=== PATIENT | male | born 1990 | race Caucasian/White ===

== ENCOUNTER 2018-07-25 02:31 | Observation (INO) | payer OTHER ==
[2018-07-25] MEDS ORDERED: HYDROmorphone 1 MG/ML 1 ML SYRINGE IVP STA ×2 (02:50→04:52)
[2018-07-25] MEDS ORDERED: ONDANSETRON 4 MG/2 ML VIAL IVP STA (02:50)
[2018-07-25] MEDS ORDERED: SODIUM CHLORIDE 0.9% 1,000 ML IV STA (02:50)
[2018-07-25 03:23] LABS: Basophils % (A) 0 %; Eosinophils # (A) 0.4 k/uL (0-0.7); Eosinophils % (A) 3 %; HGB 14.5 gm/dL (13.0-17.5); Lymphocytes # (A) 2.4 k/uL (1.0-4.8); Lymphocytes % (A) 20 %; MCH 28.5 pg (25.0-35.0); MCHC 33.8 g/dL (31.0-37.0); MCV 84.6 fL (80.0-100.0); Mean Platelet Volume 5.9; Monocytes # (A) 0.6 k/uL (0-1.0); Monocytes % (A) 5 %; Neutrophils # (A) 8.4 k/uL (1.3-7.7); Neutrophils % (A) 71 %; Platelet Count 273 k/uL (150-450); RBC 5.09 m/uL (4.30-5.90); WBC 11.9 k/uL (3.8-10.6)
--- NOTE | 2018-07-25 03:26 | ED ---
Abdominal Pain HPI - General Source: patient Mode of arrival: ambulatory Limitations: no limitations <Brittny Varner - Last Filed: 07/25/18 03:52> <Trupti Kay - Last Filed: 07/25/18 07:57> - General Chief Complaint: Abdominal Pain Stated Complaint: Abdominal Pain Time Seen by Provider: 07/25/18 02:41 - History of Present Illness Initial Comments: 28-year-old male patient presents to the emergency department for evaluation of lower abdominal pain. Patient states this started a few hours ago but has been steadily worsening. Patient states it did wake him from sleep. Patient states his been nauseated with this but has not vomited. Denies any fevers or chills. Denies any constipation or diarrhea. Denies any hematuria, dysuria, urinary frequency, urinary urgency. He denies any radiation of the pain to his back. Denies any history of similar symptoms. Reports a benign medical history. Pat ient denies any recent rash, shortness breath, chest pain, numbness, tingling, dizziness, weakness, headache, visual changes, or any other complaints. (Brittny Varner) - Related Data Allergies Allergy/AdvReac Type Severity Reaction Status Date / Time No Known Allergies Allergy Verified 07/25/18 02:41 Review of Systems ROS Other: All systems not noted in ROS Statement are negative. <Brittny Varner - Last Filed: 07/25/18 03:52> ROS Other: All systems not noted in ROS Statement are negative. <Trupti Kay - Last Filed: 07/25/18 07:57> ROS Statement: Those systems with pertinent positive or pertinent negative responses have been documented in the HPI. Past Medical History Past Medical History: Hyperlipidemia History of Any Multi-Drug Resistant Organisms: None Reported Past Surgical History: No Surgical Hx Reported Past Psychological History: No Psychological Hx Reported Smoking Status: Never smoker Past Alcohol Use History: Occasional Past Drug Use History: None Reported <Brittny Varner - Last Filed: 07/25/18 03:52> General Exam Limitations: no limitations General appearance: alert, in no apparent distress, other (Physical well- developed, well-nourished adult male patient in mild distress related to pain. Vital signs upon presentation are temperature 97.7F, pulse 92, respirations 18, blood pressure 149/93, pulse ox 100% on room air.) Eye exam: Present: normal appearance, PERRL, EOMI. Absent: scleral icterus, conjunctival injection, periorbital swelling ENT exam: Present: normal exam, normal oropharynx, mucous membranes moist Respiratory exam: Present: normal lung sounds bilaterally. Absent: respiratory distress, wheezes, rales, rhonchi, stridor Cardiovascular Exam: Present: regular rate, normal rhythm, normal heart sounds. Absent: systolic murmur, diastolic murmur, rubs, gallop, clicks GI/Abdominal exam: Present: soft, tenderness (Right mid abdomen tenderness), normal bowel sounds. Absent: distended, guarding, rebound, rigid Back exam: Present: normal inspection. Absent: CVA tenderness (R), CVA tenderness (L) Neurological exam: Present: alert, oriented X3, CN II-XII intact Psychiatric exam: Present: normal affect, normal mood Skin exam: Present: warm, dry, intact, normal color. Absent: rash <Brittny Varner - Last Filed: 07/25/18 03:52> Course Vital Signs 07/25/18 07/25/18 07/25/18 02:37 04:05 05:24 Temperature 97.7 F 98.2 F Pulse Rate 92 78 84 Respiratory 18 16 12 Rate Blood Pressure 149/93 140/88 147/88 O2 Sat by Pulse 100 98 97 Oximetry Medical Decision Making - Lab Data Result diagrams: 07/25/18 03:05 07/25/18 03:05 - Radiology Data Radiology results: report reviewed, image reviewed <Brittny Varner - Last Filed: 07/25/18 03:52> - Lab Data Result diagrams: 07/25/18 03:05 07/25/18 03:05 <Trupti Kay - Last Filed: 07/25/18 07:57> - Medical Decision Making 28-year-old male patient presents to the emergency department today for evaluation of lower abdominal pain. Physical examination did reveal tenderness to the right mid abdomen. Patient did have leukocytosis with a white blood cell count 11.8. CT abdomen and pelvis was obtained and did show evidence for acute appendicitis. No Acute process is seen at this time. Patient started on Zosyn. Be admitted to Dr. Bryant. (Brittny Varner) I was available for consultation in the emergency department. The history and physical exam were done by the midlevel provider. I was consulted for this patient's care. I reviewed the case with the midlevel provider and based on their presentation of the patient, I agree with the assessment, medical decision making and plan of care as documented. Chart was dictated using [employer] dictation software. Attempts were made to correct any dictation errors however some typographical errors may persist. (Trupti Kay) - Lab Data Lab Results 07/25/18 07/25/18 07/25/18 Range/Units 03:05 03:05 03:05 WBC 11.9 H (3.8-10.6) k/uL RBC 5.09 (4.30-5.90) m/uL Hgb 14.5 (13.0-17.5) gm/dL Hct 43.0 (39.0-53.0) % MCV 84.6 (80.0-100.0) fL MCH 28.5 (25.0-35.0) pg MCHC 33.8 (31.0-37.0) g/dL RDW 13.0 (11.5-15.5) % Plt Count 273 (150-450) k/uL Neutrophils % 71 % Lymphocytes % 20 % Monocytes % 5 % Eosinophils % 3 % Basophils % 0 % Neutrophils # 8.4 H (1.3-7.7) k/uL Lymphocytes # 2.4 (1.0-4.8) k/uL Monocytes # 0.6 (0-1.0) k/uL Eosinophils # 0.4 (0-0.7) k/uL Basophils # 0.0 (0-0.2) k/uL Sodium 139 (137-145) mmol/L Potassium 3.7 (3.5-5.1) mmol/L Chloride 105 (98-107) mmol/L Carbon Dioxide 21 L (22-30) mmol/L Anion Gap 13 mmol/L BUN 20 (9-20) mg/dL Creatinine 0.90 (0.66-1.25) mg/dL Est GFR (CKD-EPI)AfAm >90 (>60 ml/min/1.73 sqM) Est GFR (CKD-EPI)NonAf >90 (>60 ml/min/1.73 sqM) Glucose 94 (74-99) mg/dL Calcium 10.3 H (8.4-10.2) mg/dL Total Bilirubin 0.8 (0.2-1.3) mg/dL AST 24 (17-59) U/L ALT 36 (21-72) U/L Alkaline Phosphatase 70 (38-126) U/L Total Protein 7.7 (6.3-8.2) g/dL Albumin 5.0 (3.5-5.0) g/dL Amylase 67 (30-110) U/L Lipase 76 (23-300) U/L Urine Color Yellow Urine Appearance Clear (Clear) Urine pH 6.0 (5.0-8.0) Ur Specific [place] 1.024 (1.001-1.035) Urine Protein Negative (Negative) Urine Glucose (UA) Negative (Negative) Urine Ketones Negative (Negative) Urine Blood Small H (Negative) Urine Nitrite Negative (Negative) Urine Bilirubin Negative (Negative) Urine Urobilinogen <2.0 (<2.0) mg/dL Ur Leukocyte Esterase Negative (Negative) Urine RBC 5 (0-5) /hpf Urine WBC <1 (0-5) /hpf Urine Mucus Rare H (None) /hpf - Radiology Data CT abdomen and pelvis with contrast was obtained. Report was reviewed in its entirety. Impression by Dr. Santana shows acute uncomplicated appendicitis. (Brittny Varner) Disposition Decision to Admit Reason: Admit from EC Decision Date: 07/25/18 Decision Time: 03:53 <Brittny Varner - Last Filed: 07/25/18 03:52> <Trupti Kay - Last Filed: 07/25/18 07:57> Clinical Impression: Acute appendicitis Disposition: ADMITTED IP TO THIS [facility] Condition: Serious
[2018-07-25 03:32] LABS: ALT 36 U/L (21-72); AST 24 U/L (17-59); Alkaline Phosphatase 70 U/L (38-126); Amylase 67 U/L (30-110); Anion Gap 13 mmol/L; Appearance,Urine Clear (Clear); Bilirubin,Urine Negative (Negative); Blood Urea Nitrogen 20 mg/dL (9-20); Blood,Urine Small (Negative); Calcium 10.3 mg/dL (8.4-10.2); Carbon Dioxide 21 mmol/L (22-30); Chloride 105 mmol/L (98-107); Color,Urine Yellow; Glucose 94 mg/dL (74-99); Glucose,Urine (UA) Negative (Negative); Ketones,Urine Negative (Negative); Leukocyte Esterase,Urine Negative (Negative); Lipase 76 U/L (23-300); Mucus,Urine Rare /hpf; Nitrite,Urine Negative (Negative); Potassium 3.7 mmol/L (3.5-5.1); Protein,Urine Negative (Negative); RBC,Urine 5 /hpf (0-5); Sodium 139 mmol/L (137-145); Specific Gravity,Urine 1.024 (1.001-1.035); Total Bilirubin 0.8 mg/dL (0.2-1.3); Total Protein 7.7 g/dL (6.3-8.2); Urobilinogen,Urine <2.0 mg/dL (<2.0); WBC,Urine <1 /hpf (0-5)
--- NOTE | 2018-07-25 03:44 | CT ---
INDICATION: Abdominal pain TECHNIQUE: CT acquisition is performed through the abdomen and pelvis on the administration of IV contrast. Coronal and sagittal reformatted images are provided. DOSE INFORMATION: CTDIvol 9.2 mGy; DLP 844.2 mGy-cm. One or more of the following dose reduction techniques were used: automated exposure control, adjustment of the mA and/or kV according to patient size, use of iterative reconstruction technique. COMPARISON: None. FINDINGS: The lung bases are clear. The liver, gallbladder, spleen, pancreas, and adrenal glands are unremarkable. The kidneys enhance symmetrically. There is no hydronephrosis or perinephric stranding. Aorta and IVC are normal. There is no adenopathy. The retrocecal appendix is mildly dilated measuring 7 mm. The appendix is fluid filled, and there is appendiceal wall thickening and periappendiceal fat stranding. There is no evidence of free air or abscess. There is no small or large bowel obstruction. Urinary bladder and prostate are unremarkable. There are no acute osseous findings. IMPRESSION: 1. Uncomplicated acute appendicitis. <MYCVCSECTION> [employer] 07/25/18 03:45 Call Doctor Regarding Appendicitis, called [facility] for Dr. Stearns on 07/25 03:45 (-04:00)
[2018-07-25] MEDS ORDERED: PIPERACILLIN-TAZOBACTAM 3.375 GM in SODIUM CHLORIDE 0.9% 100 ML IVPB STA (03:46)
[2018-07-25] MEDS ORDERED: NALOXONE 0.4 MG/ML 1 ML VIAL IV PRN (03:58)
[2018-07-25] MEDS: SODIUM CHLORIDE 0.9% 1,000 ML IV SCH (05:28)
[2018-07-25] MEDS: HYDROmorphone 1 MG/ML 1 ML SYRINGE IVP PRN ×2 (07:13→11:56)
--- NOTE | 2018-07-25 09:27 | P.GSHP ---
History of Present Illness H&P Date: 07/25/18 Chief Complaint: abdominal pain CHIEF COMPLAINT: Abdominal pain HISTORY OF PRESENT ILLNESS: 28 year old male who presented to the ER with a chief complaint of abdominal pain. Patient states he was feeling fine yesterday and was outside cleaning out his garage and working in the yard. Around dinner time, he began having right lower quadrant pain. He thought it was gas pain initially. He went to bed around 2300. Woke up at 0100. Pain became more severe so he came to the ER. Denies fever or chills. Denies nausea or vomiting. Denies constipation or diarrhea. Patient continues to report right lower quadrant tenderness, but tolerable. PAST MEDICAL HISTORY: See list. PAST SURGICAL HISTORY: See list. SOCIAL HISTORY: No illicit drug use. REVIEW OF SYSTEMS: CONSTITUTIONAL: Denies fever or chills. HEENT: Denies blurred vision, vision changes, or eye pain. Denies hemoptysis CARDIOVASCULAR: Denies chest pain or pressure. RESPIRATORY: No shortness of breath. GASTROINTESTINAL: Refer to [facility] for pertinent findings HEMATOLOGIC: Denies bleeding disorders. GENITOURINARY: Denies any blood in urine. SKIN: Denies pruitis. Denies rash. PHYSICAL EXAM: VITAL SIGNS: Reviewed. GENERAL: Well-developed in no acute distress. HEENT: No sclera icterus. Extraocular movements grossly intact. Moist buccal mucosa. Head is atraumatic, normocephalic. ABDOMEN: Soft. Nondistended. Tenderness to right lower quadrant. NEUROLOGIC: Alert and oriented. Cranial nerves II through XII grossly intact. LABORATORY DATA: WBC 11.9 on admission IMAGING: CT Abdomen and pelvis: Retrocecal appendix. Mildly dilated measuring 7mm. Appendix is fluid filled. Appendiceal wall thickening and periappendiceal fat stranding. No evidence of free air or abscess. Uncomplicated acute appendicits. ASSESSMENT: 1. Abdominal pain 2. Acute appendicitis 3. Leukocytosis PLAN: 1. NPO 2. Patient scheduled for appendectomy today with Dr. Bryant Nurse practitioner note has been reviewed by physician. Signing provider agrees with the documented findings, assessment, and plan of care. Past Medical History Past Medical History: Hyperlipidemia History of Any Multi-Drug Resistant Organisms: None Reported Past Surgical History: No Surgical Hx Reported Additional Past Surgical History / Comment(s): [place] teeth removed Past Psychological History: No Psychological Hx Reported Smoking Status: Never smoker Past Alcohol Use History: Occasional Past Drug Use History: None Reported Medications and Allergies Home Medications Medication Instructions Recorded Confirmed Type No Known Home Medications 07/25/18 07/25/18 History Allergies Allergy/AdvReac Type Severity Reaction Status Date / Time No Known Allergies Allergy Verified 07/25/18 08:38 Surgical - Exam Vital Signs Temp Pulse Resp BP Pulse Ox 97.7 F 92 18 149/93 100 07/25/18 02:37 07/25/18 02:37 07/25/18 02:37 07/25/18 02:37 07/25/18 02:37 Results - Labs 07/25/18 03:05 07/25/18 03:05 Abnormal Lab Results - Last 24 Hours (Table) 07/25/18 07/25/18 07/25/18 Range/Units 03:05 03:05 03:05 WBC 11.9 H (3.8-10.6) k/uL Neutrophils # 8.4 H (1.3-7.7) k/uL Carbon Dioxide 21 L (22-30) mmol/L Calcium 10.3 H (8.4-10.2) mg/dL Urine Blood Small H (Negative) Urine Mucus Rare H (None) /hpf Diabetes panel 07/25/18 Range/Units 03:05 Sodium 139 (137-145) mmol/L Potassium 3.7 (3.5-5.1) mmol/L Chloride 105 (98-107) mmol/L Carbon Dioxide 21 L (22-30) mmol/L BUN 20 (9-20) mg/dL Creatinine 0.90 (0.66-1.25) mg/dL Glucose 94 (74-99) mg/dL Calcium 10.3 H (8.4-10.2) mg/dL AST 24 (17-59) U/L ALT 36 (21-72) U/L Alkaline Phosphatase 70 (38-126) U/L Total Protein 7.7 (6.3-8.2) g/dL Albumin 5.0 (3.5-5.0) g/dL Calcium panel 07/25/18 Range/Units 03:05 Calcium 10.3 H (8.4-10.2) mg/dL Albumin 5.0 (3.5-5.0) g/dL Pituitary panel 07/25/18 Range/Units 03:05 Sodium 139 (137-145) mmol/L Potassium 3.7 (3.5-5.1) mmol/L Chloride 105 (98-107) mmol/L Carbon Dioxide 21 L (22-30) mmol/L BUN 20 (9-20) mg/dL Creatinine 0.90 (0.66-1.25) mg/dL Glucose 94 (74-99) mg/dL Calcium 10.3 H (8.4-10.2) mg/dL Adrenal panel 07/25/18 Range/Units 03:05 Sodium 139 (137-145) mmol/L Potassium 3.7 (3.5-5.1) mmol/L Chloride 105 (98-107) mmol/L Carbon Dioxide 21 L (22-30) mmol/L BUN 20 (9-20) mg/dL Creatinine 0.90 (0.66-1.25) mg/dL Glucose 94 (74-99) mg/dL Calcium 10.3 H (8.4-10.2) mg/dL Total Bilirubin 0.8 (0.2-1.3) mg/dL AST 24 (17-59) U/L ALT 36 (21-72) U/L Alkaline Phosphatase 70 (38-126) U/L Total Protein 7.7 (6.3-8.2) g/dL Albumin 5.0 (3.5-5.0) g/dL
[2018-07-25] MEDS: ONDANSETRON 4 MG/2 ML VIAL IVP PRN ×2 (10:00→21:12)
[2018-07-25 10:04] LABS: Glucose,Whole Blood 97 mg/dL (75-99)
[2018-07-25] MEDS: PIPERACILLIN-TAZOBACTAM 3.375 GM in SODIUM CHLORIDE 0.9% 100 ML IVPB SCH ×2 (11:42→20:52)
[2018-07-25] MEDS ORDERED: SODIUM CHLORIDE 0.9% 1,000 ML IV ONE (14:57)
[2018-07-25] MEDS ORDERED: ONDANSETRON 4 MG/2 ML VIAL IVP ONE (15:15)
[2018-07-25] MEDS ORDERED: DEXAMETHASONE SOD PHOS (MDV) 100 MG/10 ML VIAL IVP ONE (15:15)
[2018-07-25] MEDS ORDERED: HEPARIN SODIUM,PORCINE 5,000 UNIT/ML 1 ML VIAL SQ ONE (15:57)
[2018-07-25] MEDS ORDERED: ceFAZolin IN SWFI 2 GM/20 ML SYRINGE IVP ONE (15:59)
--- NOTE | 2018-07-25 16:00 | P.HPADDEND ---
H&P Addendum H&P Addendum Date: 07/25/18 Patient seen and evaluated. History of acute appendicitis. Will proceed with robotic appendectomy. Benefits and risks procedure described. 3 weeks of recovery reviewed due to occupation
[2018-07-25] MEDS ORDERED: SUCCINYLCHOLINE CHLORIDE 100 MG/5 ML SYR IV ONE (16:29)
[2018-07-25] MEDS ORDERED: PROPOFOL 10 MG/ML 20 ML VIAL IV ONE (16:29)
[2018-07-25] MEDS ORDERED: NEOSTIGMINE 1 MG/ML 10 ML VIAL ONE (16:29)
[2018-07-25] MEDS ORDERED: fentaNYL (PF) 50 MCG/ML 2 ML AMP ONE (16:29)
[2018-07-25] MEDS ORDERED: GLYCOPYRROLATE 0.2 MG/ML 2 ML VIAL ONE (16:29)
[2018-07-25] MEDS ORDERED: LIDOCAINE 1% INJ 10MG/ML (20 ML MDV) ONE (16:29)
[2018-07-25] MEDS ORDERED: ROCURONIUM BROMIDE 10 MG/ML 10 ML VIAL IV ONE (16:29)
[2018-07-25] MEDS ORDERED: MIDAZOLAM 2 MG/2 ML VIAL ONE (16:29)
[2018-07-25] MEDS ORDERED: BUPIVACAINE-EPI 0.5%-1:200,000 10 ML VIAL SQ ONE (16:57)
[2018-07-25] MEDS ORDERED: LACTATED RINGERS 1,000 ML IV ONE (17:03)
[2018-07-25] MEDS ORDERED: HYDROcodone/APAP 5-325MG 1 EACH TAB PO PRN (17:36)
--- NOTE | 2018-07-25 17:36 | P.OP ---
Date of Procedure: 07/25/18 Description of Procedure: Date of Procedure: 07/25/18 SURGEON: ASTRID BRYANT MD Preoperative Diagnosis: 1. Right lower quadrant abdominal pain 2. Acute appendicitis. 3. Leukocytosis Postoperative Diagnosis: 1. Right lower quadrant abdominal pain 2. Acute appendicitis without rupture 3. Leukocytosis Procedure(s) Performed: 1. Robotic-assisted daVinci Xi laparoscopic appendectomy Anesthesia: GETA, local Surgeon: Astrid Bryant Estimated Blood Loss (ml): 2 Pathology: other (appendix) Condition: stable Disposition: floor Operative Findings: 1. Small indirect right inguinal hernia less than 1.5 cm. 2. Dilated tip of appendix without perforation 3. Staple line completely hemostatic 4. Terminal ileum unremarkable 5. Cecum unremarkable INDICATIONS: The patient is a 28-year-old male who presents with new right lower quadrant abdominal pain. Additional diagnostic studies confirmed appendicitis. Surgical intervention was described in detail including robotic assisted technique. Benefits and risks, including infection, open surgery, and possibility for additional surgery was discussed at length. Informed consent was obtained. All questions of the patient and family were answered. DESCRIPTION: The patient was transferred to the operating room and placed in supine position. The patient had previously voided. The abdomen was then prepped and draped in standard sterile fashion as Ioban was placed along the ab domen to minimize any contamination of skin madelyn. After a timeout protocol was performed, attention was then brought to the left upper quadrant whereby a 0 degree 5 mm laparoscopic trocar entry was performed. The abdominal cavity was entered and insufflated to 15 mmHg pressure, which was tolerated well. Diagnostic laparoscopy demonstrated no injury to bowel, viscera or mesentery. The appendix and mesoappendix were inflammed with dilation of the tip of the appendix without rupture. No evidence of perforation or free fluid was identified. Small indirect right inguinal hernia less than 1.5 cm was found. Terminal ileum was unremarkable. Cecum was unremarkable Next a robotic 12-mm trocar was placed along the left lower quadrant, 15-cm lateral to the midline. A 8 mm port was placed along the right upper quadrant and another 8-mm port along the epigastrium. Ports were placed 10 cm apart from each other including 15-20 cm away from the target anatomy of the right pelvis. The patient was then placed in Trendelenburg position, at least 10 down and right side up at least 6. The robotic da Irasema XI system was primed and docked from the left side of the patient. Using atraumatic graspers and vessel sealer, the robotic system was docked and primed as described. Instruments were interchanged by the psychiatric nursing assistant including graspers, robotic stapler and vessel sealer. Next, attention was brought to identify the cecum. A systematic view within the abdominal cavity was started with the small bowel which was unremarkable. The base of the cecum was unremarkable. No inguinal hernias were identified. The body to tip of the appendix was moderately dilated. No perforation was identified. A 45 mm white robotic staple loads were fired along the base of the appendix. The staple line was hemostatic. Hemostasis was checked prior to undocking the robot. The robot was undocked. I re-scrubbed into the case. The specimen was removed from the abdominal cavity with an Endo Catch bag through the 12 mm trocar at the left lower quadrant. All instruments and pneumoperitoneum were evacuated from the abdominal cavity. Local anesthetic was infiltrated to all wounds for postop analgesia. All incisions were also cleansed with diluted hydrogen peroxide. Exofin glue was applied to the rest of the skin incisions. The patient had tolerated the procedure well. The patient was extubated successfully. The patient was transferred to the postanesthesia care unit in stable condition.
[2018-07-25] MEDS ORDERED: HYDROmorphone 1 MG/ML 1 ML SYRINGE IVP ONE (18:18)
[2018-07-25] MEDS: KETOROLAC 30 MG/ML 1 ML VIAL IVP SCH (20:31)
[2018-07-25 21:25] LABS: Glucose,Whole Blood 142 mg/dL (75-99)
[2018-07-25] MEDS: HEPARIN SODIUM,PORCINE 5,000 UNIT/ML 1 ML VIAL SQ SCH (21:34)
[2018-07-25] MEDS ORDERED: Acetaminophen-Codeine 300-30mg TAB PO PRN (21:52)
[2018-07-26] MEDS: SODIUM CHLORIDE 0.9% 1,000 ML IV SCH ×3 (00:55→20:46)
[2018-07-26] MEDS: KETOROLAC 30 MG/ML 1 ML VIAL IVP SCH ×4 (01:02→17:17)
[2018-07-26] MEDS: HEPARIN SODIUM,PORCINE 5,000 UNIT/ML 1 ML VIAL SQ SCH ×3 (01:02→16:35)
[2018-07-26] MEDS: PIPERACILLIN-TAZOBACTAM 3.375 GM in SODIUM CHLORIDE 0.9% 100 ML IVPB SCH ×3 (05:09→20:40)
[2018-07-26 08:01] LABS: Basophils % (A) 0 %; Eosinophils # (A) 0.1 k/uL (0-0.7); Eosinophils % (A) 1 %; HCT 41.3 % (39.0-53.0); HGB 13.5 gm/dL (13.0-17.5); Lymphocytes # (A) 1.5 k/uL (1.0-4.8); Lymphocytes % (A) 17 %; MCH 28.3 pg (25.0-35.0); MCHC 32.6 g/dL (31.0-37.0); MCV 86.8 fL (80.0-100.0); Monocytes # (A) 0.6 k/uL (0-1.0); Monocytes % (A) 7 %; Neutrophils # (A) 6.1 k/uL (1.3-7.7); Neutrophils % (A) 73 %; Platelet Count 258 k/uL (150-450); RBC 4.76 m/uL (4.30-5.90); RDW 13.2 % (11.5-15.5); WBC 8.4 k/uL (3.8-10.6)
[2018-07-26] MEDS ORDERED: PANTOPRAZOLE 40 MG/10 ML VIAL IVP SCH (09:00)
--- NOTE | 2018-07-26 12:56 | P.PN ---
Subjective Progress Note Date: 07/26/18 CHIEF COMPLAINT: Abdominal pain HISTORY OF PRESENT ILLNESS: Patient seen at the bedside. Patient is status post appendectomy. POD #1. Patient reports his pain is tolerable. Tolerating diet. Denies nausea or vomiting. Passing flatus. Denies BM. WBC 8.4. PHYSICAL EXAM: VITAL SIGNS: Reviewed. GENERAL: Well-developed in no acute distress. HEENT: No sclera icterus. Extraocular movements grossly intact. Moist buccal mucosa. Head is atraumatic, normocephalic. ABDOMEN: Soft. Nondistended. Surgical incision sites clean dry and intact. NEUROLOGIC: Alert and oriented. Cranial nerves II through XII grossly intact. ASSESSMENT: 1. Abdominal pain 2. Acute appendicitis 3. Leukocytosis, resolved PLAN: 1. Activity as tolerated 2. Incentive spirometry 3. Pain control 4. Anticipate discharge home this evening after patient is evaluated by Dr. Bryant Nurse practitioner note has been reviewed by physician. Signing provider agrees with the documented findings, assessment, and plan of care. Objective - Vital Signs Vital signs: Vital Signs Temp 98.3 F 07/26/18 07:59 Pulse 57 L 07/26/18 07:59 Resp 16 07/26/18 07:59 BP 113/61 07/26/18 07:59 Pulse Ox 97 07/26/18 07:59 Intake & Output 07/25/18 07/26/18 07/26/18 18:59 06:59 18:59 Intake Total 800 Output Total 2 Balance 798 Intake: IV 800 Output: Estimated Blood Loss 2 Other: Voiding Method Toilet # Voids 2 1 - Labs CBC & Chem 7: 07/26/18 07:45 07/25/18 03:05 Labs: Abnormal Lab Results - Last 24 Hours (Table) 07/25/18 Range/Units 21:13 POC Glucose (mg/dL) 142 H (75-99) mg/dL Assessment and Plan (1) Acute appendicitis Current Visit: Yes Status: Acute Code(s): K35.80 - UNSPECIFIED ACUTE APPENDICITIS SNOMED Code(s): 10526308
[2018-07-26 19:51] VITALS: BP 138/81; PULSE 52; TEMP 98.2
--- NOTE | 2018-07-26 21:31 | P.PN ---
Progress Note - Text Progress Note Date: 07/26/18 Patient report doing well. May discharge home. Follow up in the office in 2 weeks.
[2018-07-26 22:15] VITALS: RESP 18
--- NOTE | 2018-07-28 20:42 | P.DS ---
Providers Date of admission: 07/25/18 04:03 Expected date of discharge: 07/26/18 Attending physician: Astrid Bryant Primary care physician: Stated None Patient Condition at Discharge: Serious Plan - Discharge Summary Discharge Rx Participant: Yes New Discharge Prescriptions: New Docusate [Colace] 100 mg PO BID #30 capsule Hydrocodone/Acetaminophen [[place] 5-325] 1 tab PO Q4HR PRN 3 Days #18 tab PRN Reason: Pain Ibuprofen [Motrin] 600 mg PO Q8HR PRN #30 tab PRN Reason: Pain Discharge Medication List Docusate [Colace] 100 mg PO BID #30 capsule 07/26/18 [Rx] Hydrocodone/Acetaminophen [[place] 5-325] 1 tab PO Q4HR PRN 3 Days #18 tab 07/26/18 [Rx] Ibuprofen [Motrin] 600 mg PO Q8HR PRN #30 tab 07/26/18 [Rx] Follow up Appointment(s)/Referral(s): Astrid Bryant MD [STAFF PHYSICIAN] - 08/17/18 1:45 pm None,Stated [Primary Care Provider] - 1-2 days Patient Instructions/Handouts: Laparoscopic Appendectomy (DC) Activity/Diet/Wound Care/Special Instructions: No driving while taking [place] No lifting over 10 pounds You may shower. No soaking or tub baths Very light activity until you are reevaluated at your follow up appointment with your surgeon Discharge Disposition: HOME SELF-CARE
== END 2018-07-26 10:10 | disposition home or self-care (01) ==
LOC: EC 02:31 → 4SSUR 04:03
PROVIDERS: ADMIT Surgery Plastic and Reconstructive Surgery; ATTEND Surgery Plastic and Reconstructive Surgery
DX: K35.80 Unspecified acute appendicitis (principal); K40.90 Unilateral inguinal hernia, without obstruction or gangrene, not specified as recurrent; E78.5 Hyperlipidemia, unspecified
CPT/HCPCS: 44970; S2900; 36415; 74177; 80053; 81001; 82150; 83690; 85025; 88304; 96361; 96365; 96366; 96372; 96375; 96376; 99285

== ENCOUNTER 2020-07-15 20:32 | Emergency (ER) | payer OTHER ==
[2020-07-15 20:38] VITALS: BP 156/79; TEMP 98.1
--- NOTE | 2020-07-15 21:01 | XR ---
EXAMINATION TYPE: XR chest 2V DATE OF EXAM: 07/15/2020 COMPARISON: NONE HISTORY: Short of breath TECHNIQUE: FINDINGS: Heart and mediastinum are normal. Lungs are clear. Diaphragm is normal. Bony thorax appears normal. IMPRESSION: Normal chest.
[2020-07-15] MEDS ORDERED: SODIUM CHLORIDE 0.9% 1,000 ML IV STA (22:26)
--- NOTE | 2020-07-15 22:27 | ED ---
Chest Pain HPI - General Chief Complaint: Chest Pain Stated Complaint: Poss blood clot in lungs Source: patient, RN notes reviewed, old records reviewed Mode of arrival: ambulatory Limitations: no limitations - History of Present Illness Initial Comments: This is a 30-year-old male presents today for evaluation patient patient comes in for evaluation of shortness of breath and chest pain not feeling well. Patient has shortness of breath with chest pain. Patient otherwise no significant complaints. Patient did again have coronavirus which she believes is over as his been greater than 2 weeks. MD Complaint: chest pain -: days(s) Onset: during rest, during exertion Pain Location: substernal, left chest Pain Radiation: none Severity: moderate Quality: tightness Improves With: nothing Worsens With: exertion, inspiration Context: recent illness (Coronavirus) Anginal Symptoms: dyspnea Other Symptoms: cough, palpitations Treatments Prior to Arrival: none - Related Data Previous Rx's Medication Instructions Recorded Azithromycin [Zithromax Z-pack (6 0 mg PO DIRECTED #1 pack 07/16/20 tabs)] Cephalexin [Keflex] 500 mg PO Q8HR #21 cap 07/16/20 Allergies Allergy/AdvReac Type Severity Reaction Status Date / Time No Known Allergies Allergy Verified 07/15/20 23:07 Review of Systems ROS Statement: Those systems with pertinent positive or pertinent negative responses have been documented in the HPI. ROS Other: All systems not noted in ROS Statement are negative. Past Medical History Past Medical History: Hyperlipidemia Additional Past Medical History / Comment(s): covid 07/10 History of Any Multi-Drug Resistant Organisms: None Reported Past Surgical History: No Surgical Hx Reported Additional Past Surgical History / Comment(s): [place] teeth removed Past Psychological History: No Psychological Hx Reported Smoking Status: Never smoker Past Alcohol Use History: Occasional Past Drug Use History: None Reported General Exam Limitations: no limitations General appearance: alert, in no apparent distress Head exam: Present: atraumatic, normocephalic, normal inspection Eye exam: Present: normal appearance, PERRL, EOMI. Absent: scleral icterus, conjunctival injection, periorbital swelling ENT exam: Present: normal exam, mucous membranes moist Neck exam: Present: normal inspection. Absent: tenderness, meningismus, lymphadenopathy Respiratory exam: Present: normal lung sounds bilaterally. Absent: respiratory distress, wheezes, rales, rhonchi, stridor Cardiovascular Exam: Present: regular rate, normal rhythm, normal heart sounds. Absent: systolic murmur, diastolic murmur, rubs, gallop, clicks GI/Abdominal exam: Present: soft, normal bowel sounds. Absent: distended, tenderness, guarding, rebound, rigid Extremities exam: Present: normal inspection, full ROM, normal capillary refill. Absent: tenderness, pedal edema, joint swelling, calf tenderness Back exam: Present: normal inspection Neurological exam: Present: alert, oriented X3, CN II-XII intact Psychiatric exam: Present: normal affect, normal mood Skin exam: Present: warm, dry, intact, normal color. 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 CT negative for PE. Patient does have pneumonia we'll treat for bacterial pneumonia on top of coronavirus infection Disposition Clinical Impression: Community acquired bacterial pneumonia Disposition: HOME SELF-CARE Condition: Good Instructions (If sedation given, give patient instructions): Community Acquired Pneumonia (ED) Prescriptions: Cephalexin [Keflex] 500 mg PO Q8HR #21 cap Azithromycin [Zithromax Z-pack (6 tabs)] 0 mg PO DIRECTED #1 pack Is patient prescribed a controlled substance at d/c from ED?: No Referrals: None,Stated [Primary Care Provider] - 1-2 days
[2020-07-15 23:30] LABS: Basophils % (A) 0 %; Eosinophils # (A) 0.2 k/uL (0-0.7); Eosinophils % (A) 3 %; HCT 39.8 % (39.0-53.0); HGB 14.1 gm/dL (13.0-17.5); Lymphocytes % (A) 29 %; MCH 29.7 pg (25.0-35.0); MCHC 35.5 g/dL (31.0-37.0); MCV 83.7 fL (80.0-100.0); Mean Platelet Volume 6.2; Monocytes # (A) 0.6 k/uL (0-1.0); Monocytes % (A) 9 %; Neutrophils # (A) 3.8 k/uL (1.3-7.7); Neutrophils % (A) 56 %; Platelet Count 253 k/uL (150-450); RBC 4.75 m/uL (4.30-5.90); RDW 12.2 % (11.5-15.5); WBC 6.7 k/uL (3.8-10.6)
[2020-07-15 23:48] LABS: ALT 40 U/L (4-49); AST 27 U/L (17-59); African American GFR (CKD) >90 (>60 ml/min/1.73 sqM); Albumin 4.5 g/dL (3.5-5.0); Alkaline Phosphatase 66 U/L (38-126); Anion Gap 8 mmol/L; Blood Urea Nitrogen 16 mg/dL (9-20); Calcium 9.4 mg/dL (8.4-10.2); Carbon Dioxide 26 mmol/L (22-30); Chloride 105 mmol/L (98-107); Glucose 87 mg/dL (74-99); Magnesium 1.7 mg/dL (1.6-2.3); Non-African American GFR(CKD) >90 (>60 ml/min/1.73 sqM); Potassium 3.5 mmol/L (3.5-5.1); Sodium 139 mmol/L (137-145); Total Bilirubin 0.4 mg/dL (0.2-1.3); Total Protein 7.1 g/dL (6.3-8.2)
[2020-07-15 23:49] LABS: INR 0.9 (<1.2); Partial Thromboplastin Time 24.9 sec (22.0-30.0); Prothrombin Time 10.2 sec (9.0-12.0)
--- NOTE | 2020-07-15 23:51 | CT ---
EXAMINATION TYPE: CT angio chest DATE OF EXAM: 07/15/2020 COMPARISON: None HISTORY: SOB , chest pain CT DLP: 470.2 mGycm Automated exposure control for dose reduction was used. CONTRAST: Performed with IV Contrast, patient injected with 70 mL of Isovue 370. Images obtained from the thoracic inlet to the diaphragm with IV contrast. There are 3-D post process ed images. There is some mild infiltrate at the left posterior lung base. There is no evidence of a pulmonary ma ss. There is no pleural effusion. There is no pericardial effusion. Heart size is normal. Upper abdom inal soft tissues are intact. There are no hilar masses. There is no mediastinal adenopathy. Thoracic aorta is intact. There is no aneurysm or dissection. There is no evidence of filling defect in the pulmonary arteries. The thoracic spine is intact. There is no compression fracture. Sternum is intact. The ribs appear in tact. I see no bony destructive process. IMPRESSION: No evidence of pulmonary embolism. Small area of pneumonia at the left posterior lung base.
[2020-07-16] MEDS ORDERED: cefTRIAXone IN SWFI 1,000 MG/10 ML SYRINGE IVP STA
[2020-07-16] MEDS ORDERED: AZITHROMYCIN 500 MG TAB PO STA
[2020-07-16 00:05] VITALS: PULSE 78; RESP 16
== END 2020-07-16 00:15 | disposition home or self-care (01) ==
LOC: EC 20:32
DX: J15.9 Unspecified bacterial pneumonia (principal)
CPT/HCPCS: 36415; 93005; 83880; 80053; 83735; 84484; 85025; 85610; 85730; 71046; 71275; 99285; 96374; 96361; J0696; Q9967

== ENCOUNTER → 2020-12-16 | Outpatient (CLI) | payer OTHER ==
--- NOTE | 2020-12-16 17:28 | CT ---
EXAMINATION TYPE: CT abdomen pelvis w con DATE OF EXAM: 12/16/2020 COMPARISON: 07/25/2018 HISTORY: lower abd pain x3 days CT DLP: 897.3 mGycm Automated exposure control for dose reduction was used. CONTRAST: Performed with IV Contrast, patient injected with 100 mL of Isovue 300. Images obtained from the diaphragm to the floor the pelvis with oral and IV contrast. Lung bases are clear. There is no pleural effusion. Heart size is normal. There is no pericardial eff usion. Liver spleen stomach pancreas gallbladder appear normal. Bile ducts are nondilated. There is no adrenal mass. Kidneys show satisfactory contrast opacification. There is no hydronephrosi s. There is no retroperitoneal adenopathy. Bladder distends smoothly. There is no mesenteric edema. There is no ascites or free air. There is no bowel obstruction. There i s no inguinal hernia. There is no sign of a pelvic mass. There is normal oral contrast opacification of the small bowel. There is no evidence of a bowel obstr uction. There is no mesenteric edema. There is no ascites or free air. Appendix is not seen. There is no sign of thickened appendix. Lumbar vertebra have normal spacing and alignment. Posterior elements are intact. There is no nayan bradley fracture. Bony pelvis is intact. Hip joints are intact. IMPRESSION: Negative CT scan of the abdomen pelvis. There is appendectomy compared to old exam.
== END | disposition home or self-care (01) ==
LOC: RADCTMAIN 15:21
PROVIDERS: ATTEND Physician Assistant Medical
DX: R10.30 Lower abdominal pain, unspecified (principal)
CPT/HCPCS: 74177; Q9967

== ENCOUNTER → 2022-06-10 | Outpatient (CLI) | payer OTHER ==
--- NOTE | 2022-06-10 21:13 | MR ---
EXAMINATION TYPE: MR knee RT wo con DATE OF EXAM: 06/10/2022 COMPARISON: Outside radiograph 05/15/2022 HISTORY: 32-year-old male M25.561, Rt knee pain TECHNIQUE: Multiplanar, multisequence imaging of the right knee is performed without IV contrast. FINDINGS: Marked heterogeneity and increased signal of the ACL. There is some irregularity of proximal third fi bers but the majority of the ligament appears intact. The PCL, MCL, and LCL appear intact. There is an oblique undersurface tear of the posterior horn extending to the junction with the menisc al body. Overall medial compartment articular cartilage volume is maintained. The lateral meniscus is intact with preserved lateral compartment articular cartilage volume. The patellofemoral compartment articular cartilage is intact. There is a small knee joint effusion and a small leaking Artis's cyst measuring 4.5 x 2.3 cm. Extensor mechanism is intact. Trace fluid within the deep infrapatellar bursa. There is some inhomoge neous signal involving the deep proximal patellar tendon fibers. Some edema is present within the sup rapatellar fat pad. Normal popliteal artery anatomy in muscle bulk. No suspicious bone marrow replacement. IMPRESSION: 1. ACL sprain with partial-thickness tear of the proximal third fibers. 2. Oblique undersurface tear posterior horn of the medial meniscus extending to the junction with the meniscal body. 3. Small knee joint effusion and small leaking Artis's cyst. 4. Mild to moderate proximal patellar tendinosis. 5. Some edema in the suprapatellar fat pad is nonspecific but may be seen in the setting of fat pad i mpingement syndrome. Clinically correlate.
== END | disposition home or self-care (01) ==
LOC: RADMRIMAIN 07:31
PROVIDERS: ATTEND Orthopaedic Surgery
DX: S83.511A Sprain of anterior cruciate ligament of right knee, initial encounter (principal); S83.241A Other tear of medial meniscus, current injury, right knee, initial encounter; M25.461 Effusion, right knee; M71.21 Synovial cyst of popliteal space [Baker], right knee; M67.863 Other specified disorders of tendon, right knee; X58.XXXA Exposure to other specified factors, initial encounter

== ENCOUNTER → 2022-06-24 | Outpatient (CLI) | payer OTHER ==
--- NOTE | 2022-06-25 06:15 | MR ---
EXAMINATION TYPE: MR knee LT wo con DATE OF EXAM: 06/24/2022 COMPARISON: Outside left knee x-ray May 15, 2022 HISTORY: Inner left knee pain with swelling for one year. TECHNIQUE: Multiplanar, multisequence images of the knee is performed without IV contrast. FINDINGS: MEDIAL MENISCUS: Horizontal increased signal on coronal images does not extend to articular surface. LATERAL MENISCUS: Anterior and posterior horns are intact without tear. CRUCIATE LIGAMENTS: The anterior and posterior cruciate ligaments are intact and unremarkable. COLLATERAL LIGAMENTS: The medial collateral ligament and lateral collateral ligament complex are inta ct and unremarkable. EXTENSOR MECHANISM: Visualized quadriceps and patellar tendons are intact. EFFUSION: No significant suprapatellar joint effusion. POPLITEAL CYST: Multiseptated moderate to large size popliteal/story cyst measuring near 9.0 cm long axis sagittal image 25. TRICOMPARTMENT SPACES: Tricompartment joint spaces are fairly well-preserved. No significant spurring is seen. CARTILAGE: Tricompartment articular cartilage is maintained. BONE MARROW SIGNAL: No focal abnormal marrow signal is appreciated. OTHER: No additional significant abnormality is appreciated. IMPRESSION: 1. Possible intrasubstance tear medial meniscus. No full-thickness meniscal or ligamentous tear is se en. 2. Moderate to large sized multiseptated popliteal cyst otherwise fairly unremarkable study.
== END | disposition home or self-care (01) ==
LOC: RADMRIMAIN 13:01
PROVIDERS: ATTEND Orthopaedic Surgery
DX: M71.22 Synovial cyst of popliteal space [Baker], left knee (principal); M25.562 Pain in left knee

== ENCOUNTER → 2022-07-09 | Outpatient (CLI) | payer OTHER ==
[2022-07-09 15:58] LABS: Anion Gap 11.9 mmol/L (10.00-18.00); Carbon Dioxide 29.1 mmol/L (20.0-27.5); Potassium 5.2 mmol/L (3.5-5.5)
[2022-07-09 16:12] LABS: Basophils # (A) 0.05 X 10*3/uL (0.00-0.10); Basophils % (A) 0.6 %; Eosinophils # (A) 0.23 X 10*3/uL (0.04-0.35); Eosinophils % (A) 2.9 %; HCT 46.7 % (39.6-50.0); Lymphocytes # (A) 2.54 X 10*3/uL (0.90-5.00); Lymphocytes % (A) 32.4 %; MCHC 32.1 g/dL (32.0-37.0); MCV 87.3 fL (80.0-97.0); Mean Platelet Volume 8.5 fL (9.5-12.2); Monocytes # (A) 0.55 X 10*3/uL (0.20-1.00); NRBC Per 100 WBC 0 /100 WBCS (0.0-0.0); Neutrophils # (A) 4.32 X 10*3/uL (1.80-7.70); Neutrophils % (A) 55.1 %; Platelet Count 343 X 10*3/uL (140-440); RBC 5.35 X 10*6/uL (4.40-5.60); RDW 13.3 % (11.5-14.5); WBC 7.85 X 10*3/uL (4.50-10.00)
== END | disposition home or self-care (01) ==
LOC: LABPAT 09:02
PROVIDERS: ATTEND Nurse Practitioner Family
DX: Z01.812 Encounter for preprocedural laboratory examination (principal); M23.91 Unspecified internal derangement of right knee
CPT/HCPCS: 80051; 85025

== ENCOUNTER 2022-09-03 13:48 | Day surgery (SDC) | payer OTHER ==
[2022-08-31 15:23] VITALS: BMI 31.0
--- NOTE | 2022-09-03 07:33 | HP ---
HISTORY AND PHYSICAL SCHEDULED DATE OF SURGERY: 09/03/2022. HISTORY OF PRESENT ILLNESS: Maxi Sheets is a 32-year-old patient, seen with progressive left knee pain. We discussed options for treatment. He elected to proceed with left knee arthroscopy. Consent regarding procedure was obtained. PAST MEDICAL HISTORY: Noncontributory. PAST SURGICAL HISTORY: Appendectomy. DAILY MEDICATIONS: Motrin. ALLERGIES: None. SOCIAL HISTORY: Denies tobacco use. PHYSICAL EVALUATION OF THE LEFT KNEE: His range of motion is +3 to 135 degrees. Mild effusion. Tenderness along the medial joint line with a positive medial Ruth's. Ligaments are stable. Hip rotation is without pain. Distal neurovascular exam is intact. IMAGING STUDIES: Radiographs of the left knee revealed no obvious abnormality. MRI of the left knee revealed medial meniscal tear and large popliteal cyst. IMPRESSION: Internal derangement of left knee with medial meniscal tear. PLAN: Left knee arthroscopy with partial medial meniscectomy and debridement. MMODL / IJN: [id number] /
[~2022-09-03 13:48] MED LIST: DEXAMETHASONE SOD PHOSPHATE 4 MG/ML 1 ML VIAL IV ONE; HYDROmorphone 0.5 MG/0.5 ML SYRINGE IVP PRN; LACTATED RINGERS 1,000 ML IV SCH; ONDANSETRON 4 MG/2 ML VIAL IVP ONE
[2022-09-03] MEDS ORDERED: PROPOFOL 10 MG/ML 20 ML VIAL IV ONE (15:51)
[2022-09-03] MEDS ORDERED: fentaNYL (PF) 50 MCG/ML 2 ML AMP ONE (15:51)
[2022-09-03] MEDS ORDERED: HYDROmorphone (PF) 1 MG/ML ONE (15:51)
[2022-09-03] MEDS ORDERED: LIDOCAINE 2% INJ 20 MG/ML (2 ML VIAL) ONE (15:51)
[2022-09-03] MEDS ORDERED: MIDAZOLAM 2 MG/2 ML VIAL ONE (15:51)
[2022-09-03] MEDS ORDERED: BUPIVACAINE (PF) 0.25% 30 ML VIAL SQ ONE ×2 (16:11)
--- NOTE | 2022-09-03 16:40 | P.OP ---
Date of Procedure: 09/03/22 Preoperative Diagnosis: Internal derangement left knee Postoperative Diagnosis: 1. Tear lateral meniscus left knee 2. Reactive synovitis medial, lateral and suprapatellar compartments left knee 3. Grade 2 chondromalacia medial femoral condyle left knee Procedure(s) Performed: 1. Arthroscopic partial lateral meniscectomy left knee 2. Arthroscopic partial synovectomy medial, lateral and suprapatellar compartments left knee 3. Arthroscopic chondroplasty medial femoral condyle left knee Anesthesia: ARMANDOA, local Surgeon: Siva Mata Estimated Blood Loss (ml): 5 Pathology: none sent Condition: stable Disposition: PACU Indications for Procedure: 32-year-old patient seen with progressive left knee pain. After having treatment options discussed, he elected to proceed with arthroscopy. Operative Findings: see description of procedure Description of Procedure: Patient was taken to the operative suite. Patient underwent a general anesthetic by the department of anesthesia. Patient was given preoperative antibiotics. The left lower extremity was placed in a well-padded arthroscopic leg ashley. The left leg was prepped and draped in the normal sterile orthopedic fashion. A lateral parapatellar and suprapatellar incision was made. Trochars were inserted. Arthroscopy was initiated. Suprapatellar pouch revealed diffuse thick reactive synovitis. The patellofemoral joint appeared to articulate congruently. There was very mild grade 1 chondromalacia the patella. The scope was guided into the medial gutter. No loose bodies or plica were identified. The scope was then guided into the medial compartment. A medial parapatellar incision was made. Trocar inserted followed by probe. Medial meniscus was probed and was found to be stable. There was an area of grade 2 chondromalacia along the lateral aspect of the medial femoral condyle with some diffuse osteochondral flap tears present. There was some thick reactive synovitis anteriorly. I performed a chondroplasty of the medial femoral condyle down to stable osteochondral tissue. I performed a partial synovectomy decompressing reactive synovitis. The residual osteochondral surface was found to be stable. There was good decompression of the synovitis. Scope and probe were then guided into the intercondylar notch. Cruciates were identified, probed and found to be stable. The scope and probe were then guided into lateral compartment. There was a radial tear posterior horn lateral meniscus. There was no significant chondromalacia involving lateral compartment. There was some thick reactive synovitis anteriorly. I performed a partial lateral meniscectomy getting down to stable meniscal tissue. I performed a partial synovectomy decompressing reactive synovitis. The residual meniscus was found to be stable. There was good decompression of the synovitis. The scope was in guided back into the suprapatellar compartment. I introduced a motorized shaver into the suprapatellar compartment. I performed a partial synovectomy. Shaver was removed. There was good decompression of the synovitis. Instruments were now removed from the joint. The joint was infiltrated with .25% Marcaine. Steri-Strips were applied to the portal sites. Sterile dressings were applied. The patient was placed into a GISSELLE hose. No tourniquet was utilized. The patient was awakened, transferred to a bed and taken to recovery stable sa tisfactory condition.
[2022-09-03 16:43] VITALS: TEMP 97.1
[2022-09-03] MEDS ORDERED: KETOROLAC 15 MG/ML 1 ML VIAL IVP ONE (16:46)
[2022-09-03 17:32] VITALS: RESP 18
[2022-09-03 17:49] VITALS: BP 138/78; PULSE 78
== END 2022-09-03 18:07 | disposition home or self-care (01) ==
LOC: OR 13:48
PROVIDERS: ATTEND Orthopaedic Surgery
DX: S83.282A Other tear of lateral meniscus, current injury, left knee, initial encounter (principal); M65.862 Other synovitis and tenosynovitis, left lower leg; M94.262 Chondromalacia, left knee; Z90.49 Acquired absence of other specified parts of digestive tract; Z79.899 Other long term (current) drug therapy; X58.XXXA Exposure to other specified factors, initial encounter
CPT/HCPCS: 29881; J2250; J1100; J0690; J2405; J3010; J1170; J1885; J2704; J2001